=== PATIENT | male | born 1970 | race Caucasian/White ===

== ENCOUNTER → 2017-08-20 | Outpatient (CLI) | payer OTHER ==
[2017-08-20 14:08] LABS: Basophils % (A) 1 %; Eosinophils % (A) 1 %; HCT 46.6 % (39.0-53.0); HGB 15.2 gm/dL (13.0-17.5); Lymphocytes # (A) 1.4 k/uL (1.0-4.8); Lymphocytes % (A) 25 %; MCH 29.9 pg (25.0-35.0); MCHC 32.6 g/dL (31.0-37.0); MCV 91.6 fL (80.0-100.0); Mean Platelet Volume 8.2; Monocytes # (A) 0.3 k/uL (0-1.0); Monocytes % (A) 5 %; Neutrophils # (A) 3.7 k/uL (1.3-7.7); Neutrophils % (A) 67 %; Platelet Count 220 k/uL (150-450); RBC 5.09 m/uL (4.30-5.90); RDW 12.3 % (11.5-15.5); WBC 5.5 k/uL (3.8-10.6)
[2017-08-20 14:13] LABS: ALT 100 U/L (21-72); AST 141 U/L (17-59); Alkaline Phosphatase 108 U/L (38-126); Anion Gap 12 mmol/L; Blood Urea Nitrogen 20 mg/dL (9-20); Calcium 10.1 mg/dL (8.4-10.2); Carbon Dioxide 28 mmol/L (22-30); Chloride 106 mmol/L (98-107); Glucose 112 mg/dL (74-99); Potassium 4.5 mmol/L (3.5-5.1); Sodium 146 mmol/L (137-145); Total Bilirubin 0.4 mg/dL (0.2-1.3); Total Protein 7.5 g/dL (6.3-8.2)
== END | disposition home or self-care (01) ==
LOC: LABWHC1 13:34
PROVIDERS: ATTEND Family Medicine
DX: F19.10 Other psychoactive substance abuse, uncomplicated (principal)
CPT/HCPCS: 36415; 80053; 85025